=== PATIENT | male | born 1990 | race Caucasian/White ===

== ENCOUNTER 2020-01-03 15:09 | Emergency (ER) | payer OTHER, SELFPAY ==
--- NOTE | ~2020-01-03 | XR_ITS ---
EXAMINATION: XR finger 4th LT min 2V DATE: 01/03/2020 16:11 INDICATION: [place] in the tip of the left fourth digit TECHNIQUE: Dorsal palmar, lateral and 2 oblique views of the left fourth digit were obtained COMPARISON: None FINDINGS: Alignment is normal No fracture. Joint spaces are normal. One of the times of a treble fishhook exten ds deep into the soft tissues along the dorsal/ulnar side of the distal phalanx of the left fourth di git. The tip extends to within a millimeter of the cortex at the base of the distal phalanx. A ring i s present around the proximal phalanx of the fourth digit. IMPRESSION: 1. [place] in the deep soft tissues at the distal phalanx of the left fourth digit. No osseous abnor mality. Reviewed, dictated and finalized at location A. IMPRESSION: 1. [place] in the deep soft tissues at the distal phalanx of the left fourth d igit. No osseous abnormality.
[2020-01-03 15:14] VITALS: BP 175/112; PULSE 118; RESP 20; TEMP 36.2; O2SAT 98
--- NOTE | 2020-01-03 16:00 | ED.UPPEXIN ---
HPI - Extremity Injury (Upper) General Chief Complaint: Extremity Injury, Upper <Suzanna De La Garza PA-C - Last Filed: 01/03/20 18:13> Stated Complaint: Fish hook in L 4th finger <TABITHA Young Last Filed: 01/03/20 18:13> Time Seen by Provider: 01/03/20 15:19 <TABITHA Young Last Filed: 01/03/20 18:13> Source: patient <TABITHA Young Last Filed: 01/03/20 18:13> Mode of arrival: ambulatory <TABITHA Young Last Filed: 01/03/20 18:13> Limitations: no limitations <TABITHA Young Last Filed: 01/03/20 18:13> History of Present Illness HPI narrative: This is a 29 year old male that presents to the ER for foreign body in the left fourth finger sustained just prior to arrival. Reports a fishhook is caught in his left fourth finger. He is unsure of his last tetanus vaccine. Denies decreased range of motion or numbness. <TABITHA Young Last Filed: 01/03/20 18:13> Related Data Home Medications: Home Medications Medication Instructions Recorded Confirmed omeprazole DAILY 01/03/20 <TABITHA Young Last Filed: 01/03/20 18:13> Allergies/Adverse Reactions: Allergies Allergy/AdvReac Type Severity Reaction Status Date / Time No Known Allergies Allergy Verified 01/03/20 15:20 <TABITHA Young Last Filed: 01/03/20 18:13> Review of Systems Review of Systems: Narrative: CONSTITUTIONAL: Denies fever SKIN: Reports foreign body NEUROLOGIC: Denies numbness <TABITHA Young Last Filed: 01/03/20 18:13> All systems reviewed & are unremarkable except as noted in HPI and below <TABITHA Young Last Filed: 01/03/20 18:13> [facility] Past Medical History Medical History: Medical History (Updated 01/03/20 @ 18:11 by Suzanna De La Garza PA-C) History of gastroesophageal reflux (GERD) <Suzanna De La Garza PA-C - Last Filed: 01/03/20 18:13> Social History Social History: Social History (Updated 01/03/20 @ 16:04 by Suzanna De La Garza PA-C) Smoking status: Never smoker Gender identity (if verbalized by the patient): Male <Suzanna De La Garza PA-C - Last Filed: 01/03/20 18:13> Exam Narrative: Exam Narrative: GENERAL: Well-appearing, well-nourished, and in no acute distress. HEAD: Normocephalic, atraumatic. EYES: EOMI. EXTREMITIES: Normal range of motion. No edema. Left 4th finger with fish hook present in the cuticle SKIN: Warm, dry, no rash. NEURO: No focal deficits. Alert and oriented x3. PSYCH: Normal mood and affect <Suzanna De La Garza PA-C - Last Filed: 01/03/20 18:13> Course [employer]/PA Physician Supervision For this patient encounter, I reviewed the [employer] or PA documentation, treatment plan, and medical decision making; and I had [id number] time with this patient. [place] in the left fourth digit. Pliers used to push the hook all the way through and it was extracted. Discharge home with antibiotics. <Esequiel Benson MD - Last Filed: 01/03/20 18:32> Vital Signs Vital signs: Vital Signs Temperature 97.2 F L 01/03/20 15:14 Pulse Rate 118 H 01/03/20 15:14 Respiratory Rate 20 01/03/20 15:14 Blood Pressure 175/112 H 01/03/20 15:14 Pulse Oximetry 98 01/03/20 15:14 Temperature 97.2 F L 01/03/20 15:14 Pulse Rate 90 01/03/20 18:28 Respiratory Rate 18 01/03/20 18:28 Blood Pressure 152/107 H 01/03/20 18:28 Pulse Oximetry 95 01/03/20 18:28 <Suzanna De La Garza PA-C - Last Filed: 01/03/20 18:13> Vital Signs Temperature 97.2 F L 01/03/20 15:14 Pulse Rate 118 H 01/03/20 15:14 Respiratory Rate 20 01/03/20 15:14 Blood Pressure 175/112 H 01/03/20 15:14 Pulse Oximetry 98 01/03/20 15:14 Temperature 97.2 F L 01/03/20 15:14 Pulse Rate 90 01/03/20 18:28 Respiratory Rate 18 01/03/20 18:28 Blood Pressure 152/107 H 01/03/20 18:28 Pulse Oximetry 95 01/03/20 18:28 <Esequiel Benson MD - Last Filed: 01/03/20 18:32>
[2020-01-03] MEDS: TETANUS,DIPHTHERIA,AC PERTUSSIS ADULT (0.5 ML) BOOSTRIX IM (16:09)
[2020-01-03] MEDS: LIDOCAINE HCL 1% LOCAL INJ 20 ML VIAL INFILTRATE (18:05)
[2020-01-03 18:28] VITALS: BP 152/107; PULSE 90; RESP 18; O2SAT 95
== END 2020-01-03 18:30 | disposition home or self-care (01) ==
PROVIDERS: Emergency Provider Emergency Medicine
DX: S60.455A Superficial foreign body of left ring finger, initial encounter (principal); K21.9 Gastro-esophageal reflux disease without esophagitis; W26.8XXA Contact with other sharp object(s), not elsewhere classified, initial encounter; W45.8XXA Other foreign body or object entering through skin, initial encounter; Z23 Encounter for immunization
CPT/HCPCS: 73140; 90471; 90715; 99283